=== PATIENT | female | born 1985 | race Caucasian/White ===

== ENCOUNTER 2016-09-27 17:02 | Emergency (ER) | payer OTHER ==
--- NOTE | ~2016-09-27 | US106 ---
[facility] A Service [facility] RADIOLOGY TEXT RESULTS PATIENT: [employer] LOCATION: SED : [birth year] UNIT #: [id number] AGE: [address]: Jayce Rachel MD SEX: F ORDER DR: [id number] [address] [address] [id number] E MR#: [id number] Acc #: [id number] NAME: SH[employer]EL : 1985 SEX: F STUDY DATE/TIME: 09/27/2016 20:35 UNIT: SED ROOM: STUDY DESCRIPTION: US Preg Uterus Transvaginal Attending Physician: Jayce Rachel M.D. Ordering Physician: Shanae Sheth A.P.R.N. Primary Care Physician: Primary Care Physician No MEDICAL IMAGING REPORT This report is preliminary unless electronic signature is present. EXAM Transvaginal ultrasound INDICATION Vaginal bleeding and severe cramping for 24 hours. The patient states she has been passing blood clots. She has a positive beta HCG of 3,455. She has a G5, P4, AB 1 history. TECHNIQUE Transvaginal ultrasound was performed. No comparisons are available. FINDINGS The uterus is anteverted. The endometrium is thickened. There is fluid within the endometrial canal. There is a slightly hyperechoic area visualized in the lower uterine segment/cervix. There is no evidence for a gestational sac, heart tones, yolk sac or pole. The ovaries were nonvisualized due to overlying bowel gas. No free fluid is seen. IMPRESSION 1. There is no evidence for a gestational sac, pole or heart tones. 2. There is thickening of the endometrium with fluid in the endometrial canal and a slightly hyperechoic area in the lower uterine segment which may represent some blood clot versus possible retained products of conception. 3. Overall the constellation of findings is most consistent with a miscarriage. 4. Suggest continued beta HCG followup and obstetrical followup. Dictated by... Trever Mason M.D. [facility] A Service of [facility] RADIOLOGY TEXT RESULTS PATIENT: SHADE [employer] LOCATION: [facility] [place] : [birth year] UNIT #: [id number] AGE: [address]: Jayce Rachel MD SEX: F ORDER DR: THIS IS AN ELECTRONICALLY VERIFIED REPORT Trever Mason M.D. at 09/28/2016 7:45 PM Bayron TD: 09/28/2016 11:06 JOB #: [id number] MEDICAL IMAGING REPORT Page 1 of 1
[~2016-09-27 17:02] MED LIST: ADVAIR 2501 DISK W/D PO; ADVAIR INH; ALBUTEROL; ALBUTEROL MININEB NEB; ALBUTEROL17 G1 IH; ALBUTEROL17 GM INH; AMBIEN PO; AMBIEN10 MG PO; AMERIGEL; AMOXICILLIN PO; AMOXICILLIN500 M1 PO; BACTRIM DS TABL1 TA1 PO; BACTRIM DS TABL1 TAB PO; BACTROBAN22 GM TP; CELEXA PO; CELEXA20 MG PO; CHLORHEXIDINE; COLACE PO; CORTISPORIN-TC10 ML OT; DAKIN'S473 M1 MC; DEBROX15 ML OT; DEPAKOTE ER PO; DEPAKOTE ER250 MG PO; DEPAKOTE PO; DIAZEPAM PO; FEOSOL PO; FLEXERIL PO; IBUPROFEN PO; IBUPROFEN800 MG PO; KEFLEX PO; KEFLEX500 MG PO; KETOPROFEN PO; KLONOPIN PO; KLONOPIN1 MG PO; LAMICTAL100 MG PO; LISINOPRIL PO; LORTAB 5/500 TA1 TA1 PO; LUVOX; MOBIC PO; MUCINEX DM1 TAB.SR . PO; NO MEDICATIONS; NORCO 5/325 TAB1 TAB PO; PERCOCET 5-3251 TAB PO; PERCOCET5/325 PO; PHENERGAN PO; PREDNISONE PO; PREDNISONE10 MG PO; PRENATAL VITAMI1 TA4 PO; PYRIDIUM PO; QVAR7.3 GM INH; REMERON30 MG PO; ROBAXIN PO; ROBITUSSIN AC; SEPTRA SUSPENS100 ML DOB; SEROQUEL25 MG PO; TRAZODONE PO; ULTRAM PO; UNKNOWN BP MED; VICODIN 5/500 T1 TAB PO; VICODIN PO; ZITHROMAX PO; ZYPREXA PO; ZYVOX600 MG PO
[2016-09-27] MEDS ORDERED: PROZAC PO (17:07)
[2016-09-27] MEDS ORDERED: XANAX1 MG (17:07)
[2016-09-27 18:37] LABS: BASOPHIL% 0.3 % (0-2.5); EOSINOPHIL# 0.2 X10e3 (0-0.7); EOSINOPHIL% 2.5 % (0.0-7.0); HEMATOCRIT 26.3 % (35.0-45.0); HEMOGLOBIN 8.5 gm/dL (12.0-16.0); LYMPHOCYTE# 2.4 X10e3 (1.0-3.5); MEAN CORPUSCULAR HEMOGLOBIN 24.4 PG (28-34); MEAN CORPUSCULAR HGB CONC 32.5 g/dL (30-36); MEAN PLATELET VOLUME 7.8 FL (6.5-11.5); MONOCYTE# 0.7 X10e3 (0-1.0); MONOCYTE% 8.4 % (3.0-12.0); NEUTROPHIL# 4.6 X10e3 (1.5-7.1); NEUTROPHIL% 58.8 % (40-75); PLATELET COUNT 266 X10e3 (140-420); RED CELL DISTRIBUTION WIDTH 17.8 % (11.0-15.5); WHITE BLOOD COUNT 7.9 X10e3 (4.0-10.5)
[2016-09-27 18:38] LABS: DIFF IND NO
[2016-09-27 18:54] LABS: ALBUMIN SERUM 3.1 g/dL (3.5-5.0); BILIRUBIN,TOTAL 0.6 mg/dL (0.2-2.0); CALCIUM SERUM 8.6 mg/dL (8.4-10.2); CREATININE SERUM 0.5 mg/dL (0.6-1.4); GLOM FILT RATE Estimated 130.8 mL/min (>60); POTASSIUM 3.6 mmol/L (3.5-5.1); PROTEIN TOTAL SERUM 6.4 g/dL (6.0-8.3)
[2016-09-27 19:08] LABS: URINE SOURCE CATH
[2016-09-27 19:10] LABS: URINE APPEARANCE CLEAR; URINE BILIRUBIN NEG (NEG); URINE BLOOD 1+ (NEG); URINE COLOR YELLOW; URINE GLUCOSE NEG (NORM); URINE KETONE NEG (NEG); URINE LEUKOCYTE ESTERASE NEG (NEG); URINE NITRATE NEG (NEG); URINE PH 6.5 (5-8); URINE PROTEIN NEG (NEG); URINE UROBILINOGEN 0.2 MG/DL (NORM)
[2016-09-27 19:12] LABS: MICRO INDICATED? YES
[2016-09-27 19:16] LABS: CULTURE INDICATED? NO; URINE BACTERIA NEG (NEG); URINE SQUAMOUS EPITHELIAL CELL OCCAS /[HPF]; URINE WBC 0-2 /[HPF] (0-5)
[2016-09-27 21:48] LABS: AMPHETAMINE NEG (NEG); BARBITURATES NEG (NEG); BENZODIAZEPINES POS (NEG); COCAINE NEG (NEG); MARIJUANA POS (NEG); OPIATES NEG (NEG); TRICYCLIC ANTIDEPRESSANTS NEG (NEG); U METHADONE NEG (NEG)
[2016-10-02 01:22] LABS: CHLAMYDIA TRACH Not Detected (Not Detected); N GONOR Not Detected (Not Detected)
== END 2016-09-27 23:50 | disposition home or self-care (01) ==
LOC: SED 17:02
PROVIDERS: Emergency Medicine; Nurse Practitioner
DX: N76.0 Acute vaginitis (principal); R74.8 Abnormal levels of other serum enzymes; F32.9 Major depressive disorder, single episode, unspecified; G47.00 Insomnia, unspecified; F17.210 Nicotine dependence, cigarettes, uncomplicated; Z88.5 Allergy status to narcotic agent; Z88.8 Allergy status to other drugs, medicaments and biological substances
CPT/HCPCS: 36415; 76817; 80053; 80307; 81003; 84702; 84703; 85025; 86900; 86901; 87210; 87491; 87591; 87808; 87905; 88305; 99284